=== PATIENT | male | born 1995 | race Caucasian/White ===

== ENCOUNTER 2022-01-06 14:08 | Emergency (ER) | payer BC ==
[2022-01-06] MEDS ORDERED: Cyclobenzaprine 10 MG TAB ONE (14:41)
== END 2022-01-06 16:02 | disposition home or self-care (01) ==
LOC: CSHERS 14:08
DX: S46.912A Strain of unspecified muscle, fascia and tendon at shoulder and upper arm level, left arm, initial encounter (principal); I10 Essential (primary) hypertension; K21.9 Gastro-esophageal reflux disease without esophagitis; E66.01 Morbid (severe) obesity due to excess calories; X50.0XXA Overexertion from strenuous movement or load, initial encounter; Y99.0 Civilian activity done for income or pay

== ENCOUNTER 2023-06-09 21:52 | Emergency (ER) | payer BC ==
[2023-06-09] MEDS ORDERED: Ipratropium/Albuterol 3 ML NEB ONE (22:16)
[2023-06-09] MEDS ORDERED: Ipratropium Bromide 2.5 ml Neb ONE (22:17)
[2023-06-09] MEDS ORDERED: predniSONE 20 MG TAB ONE (22:20)
[2023-06-09] MEDS ORDERED: Ipratropium Bromide 2.5 ml Neb NEB SCH (22:45)
[2023-06-09 23:15] LABS: SARS-CoV-2 NAA Rapid Test Not Detected (NotDetected)
== END 2023-06-09 23:33 | disposition home or self-care (01) ==
LOC: CSHERS 21:52
DX: J18.9 Pneumonia, unspecified organism (principal); I10 Essential (primary) hypertension; K21.9 Gastro-esophageal reflux disease without esophagitis; Z20.822 Contact with and (suspected) exposure to COVID-19
CPT/HCPCS: 71045; 94760; J7512; J7611; J7620; U0002

== ENCOUNTER 2023-07-08 19:57 | Emergency (ER) | payer BC | END 2023-07-08 22:27 | disposition home or self-care (01) | LOC: CSHERS 19:57 | DX: M25.572 Pain in left ankle and joints of left foot (principal); I10 Essential (primary) hypertension ==

== ENCOUNTER 2024-10-18 20:08 | Emergency (ER) | payer BC, OTHER | END 2024-10-18 20:58 | disposition home or self-care (01) | LOC: CSHERS 20:08 | DX: J98.8 Other specified respiratory disorders (principal); B97.89 Other viral agents as the cause of diseases classified elsewhere; I10 Essential (primary) hypertension; Z79.899 Other long term (current) drug therapy | CPT/HCPCS: 99283 ==